=== PATIENT | male | born 1990 | race Caucasian/White ===

== ENCOUNTER 2018-10-09 18:01 | Emergency (ER) | payer SELFPAY ==
[~2018-10-09] VITALS: Ht 188 cm; Wt 147.7 kg
[2018-10-09 18:08] VITALS: TEMP 100
[2018-10-09] MEDS ORDERED: LEVAQUIN 5500 MG/TA1 PO (18:58)
[2018-10-09] MEDS ORDERED: TUSS PO (19:13)
[2018-10-09 19:52] VITALS: BP 128/86; PULSE 101
== END 2018-10-09 19:52 | disposition home or self-care (01) ==
LOC: COL.ER 18:01
DX: J18.1 Lobar pneumonia, unspecified organism (principal); J45.909 Unspecified asthma, uncomplicated
CPT/HCPCS: J8540

== ENCOUNTER 2018-10-17 09:29 | Inpatient (IN) | payer SELFPAY ==
[~2018-10-17] VITALS: Ht 188 cm; Wt 130.0 kg
[~2018-10-17 09:29] MED LIST: LEVAQUIN 5500 MG/TA1 PO; TUSS PO
[2018-10-17 10:40] LABS: HEMATOCRIT 40.8 % (42.0-52.0); HEMOGLOBIN 13.8 g/dl (13.5-18.0); MEAN CELL VOLUME 86 fl (80.0-100.0); MEAN CORPUSCULAR HEMOGLOBIN 29 pg (27.0-31.0); MEAN CORPUSCULAR HGB CONC 34 g/dl (33.0-37.0); MEAN PLATELET VOLUME 8.2 fl (7.4-10.4); PLATELET COUNT 451 K/mm3 (130-400); RED BLOOD COUNT 4.73 M/mm3 (4.20-5.60); REDCELL DISTRIBUTION WIDTH-CV 12.7 % (11.5-14.5)
[2018-10-17 10:55] LABS: BAND 1 % (0-10); EOSINOPHIL 4 % (0-4); LYMPHOCYTE 19 % (20.0-51.0); MYELOCYTE 2 % (0-0); NEUTROPHILS 66 % (42.0-75.2); NUCLEATED RED BLOOD CELL 1 (0-6); PLATELET ESTIMATE INCREASED (NORMAL); POLYCHROMASIA 1+
[2018-10-17 10:57] LABS: BILIRUBIN,TOTAL 0.9 mg/dL (0.0-1.0); CALCIUM 9.7 mg/dL (8.4-10.2); CREATININE, serum 1.07 (0.66-1.25); TOTAL PROTEIN 8.1 gm/dL (6.4-8.2)
[2018-10-17 14:07] LABS: TRICYCLIC ANTIDEPRESS URINE NEGATIVE
--- NOTE | 2018-10-17 15:30 | NUR ---
arrived on unit from ED per WC, assited out of WC and sitting up on side of bed, assisted into gown, IV vancomycin has been infusing to right forearm and site was red and "itchy" was stopped for a short time is now without redness, restarted without redness returning, started comopleting admission assessment and Dr Emmanuel came in to see patient, orders PICC and is wanting to do bronchoscopy, will need to get PICC line placed today so will wait to do Bronch until tomorrow, Sat, 10/19, patient is alert and oriented, no shortness of breath noted except on exertion, press room supervisor notified and Bronch will be scheduled for Sat.
[2018-10-17 15:52] VITALS: BP 124/63; PULSE 81; TEMP 98.8
--- NOTE | 2018-10-17 16:00 | NUR ---
AIV service nurse in to see patient and place PICC
--- NOTE | 2018-10-17 16:58 | NUR ---
WILLIAMV services in and placing PICC
--- NOTE | 2018-10-17 17:25 | NUR ---
PICC line is in and OK to use per AIV services, physical assessment completed, heart rate strong and regular, lungs CTA, bowel sounds present in 4 quads, abdomen is obese and soft, skin warm and dry, color pink, peripheral pulses present in 4 extremities, alert and oriented, Rustam Aleman BEER COOLER in to see patient for bromch for tomorrow, instructed on ordering regular food tonight, verbalizes understanding
[2018-10-17 18:03] LABS: HIV 1/2 Antibodies Non-Reactive; HIV-1p24 Antigen Non-Reactive
--- NOTE | 2018-10-17 18:15 | NUR ---
resting in bed, trying to eat, has dry hacking cough that is non productive, appears SOB when coughing, did not eat much and has a friend who will bring him something else, states has pain in chest during coughing
--- NOTE | 2018-10-17 19:23 | NUR ---
medicated with tessalon pearles po for coughing, bedside shift report given to GAYLA Fountain
[2018-10-17 19:55] VITALS: BP 129/80; PULSE 116; TEMP 102.6
[2018-10-18] VITALS (11 sets, daily range): BP systolic 114–145; BP diastolic 65–97; PULSE 87–102; TEMP 98.2–101.7
--- NOTE | 2018-10-18 00:35 | NUR ---
Completed assessment and medication administration; PT tolerated all cares well; PT continues to have intermittent nausea without emesis; PT A&Ox4, BS active x4, CTAB, IND with AMB; PT continues to have right flank pain; Pending bronchscopy 10/18/18 at 1000; NPO initated at midnight; No further assessed or verbalized complaints at time of exit; PT able to return to comfortable position in bed with personal items and call light within reach; Will continue to monitor. CDA
--- NOTE | 2018-10-18 01:08 | NUR ---
PT resting well in bed; No visible pain or discomfort at time of rounds; No further assessed concerns; Will continues to monitor. CDA
[2018-10-18 06:00] LABS: MEAN CELL VOLUME 88 fl (80.0-100.0); MEAN CORPUSCULAR HGB CONC 33 g/dl (33.0-37.0); MEAN PLATELET VOLUME 8.3 fl (7.4-10.4); PLATELET COUNT 363 K/mm3 (130-400); RED BLOOD COUNT 3.97 M/mm3 (4.20-5.60); REDCELL DISTRIBUTION WIDTH-CV 12.8 % (11.5-14.5)
[2018-10-18 06:07] LABS: HEMATOCRIT 35.1 % (42.0-52.0); HEMOGLOBIN 11.5 g/dl (13.5-18.0); MEAN CORPUSCULAR HEMOGLOBIN 29 pg (27.0-31.0)
[2018-10-18 06:12] LABS: CALCIUM 8.7 mg/dL (8.4-10.2); CREATININE, serum 1.12 (0.66-1.25); POTASSIUM 3.9 mmol/L (3.4-5.0)
[2018-10-18 07:00] LABS: LYMPHOCYTE 5 % (20.0-51.0); NEUTROPHILS 90 % (42.0-75.2); PLATELET ESTIMATE NORMAL (NORMAL)
--- NOTE | 2018-10-18 07:10 | NUR ---
Report given to GAYLA Powell; No significant changes or concerns at time of shift change. CDA
--- NOTE | 2018-10-18 08:00 | NUR ---
Pt is awake and A/Ox4, sitting up in bed on phone. He denies pain or discomfort. IVF are infusing into right upper arm PICC line without difficulty. He remains on room air, resp. are even and unlabored. No cough noted at this time. Pt remains NPO for upcoming bronch. Pt up in room as tolerated. Denies any needs, will monitor.
--- NOTE | 2018-10-18 09:38 | NUR ---
Pt to bronchoscopy at this time with GAYLA Delvalle. Pt to be transfered to medical floor, room 319 post bronchoscopy per Physician prefference. Report given to GAYLA Solano.
--- NOTE | 2018-10-18 10:09 | NUR ---
SW attempted to meet with the patient; the patient was not in the room.
--- NOTE | 2018-10-18 10:55 | NUR ---
Report received from GAYLA Bales. Patient arrived to room 319 via cart and was able to ambulate to bed. Patient is resting in bed with call light in reach.
--- NOTE | 2018-10-18 17:56 | NUR ---
Patient is resting in bed on the phone at this time. Medications have been administered. Patient denies any questions at this time. Call light within reach, will continue to monitor.
--- NOTE | 2018-10-18 18:33 | NUR ---
Patient resting in bed throughout the day. Evening medications administered, with PRN Tylenol. Patient does not want to order a tray this evening. There are no further questions or needs at this time. Call light is within reach.
--- NOTE | 2018-10-18 20:59 | NUR ---
PT IN BED WITH HOB ELEVATED TO 30 DEGREE ANGLE, DENIES PAIN OR DISCOMFORT AT THIS TIME. PT AWARE NEEDS SPUTUM SAMPLE, BUT NOT PRODUCING ANY AT THIS TIME. CALL LIGHT WITHIN REACH.
[2018-10-19 00:01] VITALS: BP 107/49; PULSE 65; TEMP 98.9
--- NOTE | 2018-10-19 01:13 | NUR ---
PT SLEEPING/RESTING WITH NO S/S OF PAIN OR DISCOMFORT NOTED, CALL LIGHT WITHIN REACH.
[2018-10-19 03:32] VITALS: BP 146/79; PULSE 83; TEMP 99.1
[2018-10-19 06:27] LABS: BASO # 0.1 (0.0-0.2); BASO % 0.5 % (0.0-2.0); EOS # 0.2 (0.0-0.7); EOS % 1.5 % (0-4.0); GRAN % 72.7 % (42.2-75.2); HEMOGLOBIN 11.2 g/dl (13.5-18.0); LYMPH # 2.2 (1.2-3.4); LYMPH % 16.1 % (20.0-51.0); MEAN CELL VOLUME 90 fl (80.0-100.0); MEAN CORPUSCULAR HEMOGLOBIN 29 pg (27.0-31.0); MEAN CORPUSCULAR HGB CONC 33 g/dl (33.0-37.0); MEAN PLATELET VOLUME 8.6 fl (7.4-10.4); MONO # 1.2 (0.1-0.6); MONO % 8.6 % (1.7-9.3); PLATELET COUNT 336 K/mm3 (130-400); RED BLOOD COUNT 3.83 M/mm3 (4.20-5.60); REDCELL DISTRIBUTION WIDTH-CV 12.8 % (11.5-14.5)
[2018-10-19 06:39] LABS: CALCIUM 8.7 mg/dL (8.4-10.2); HEMATOCRIT 34.4 % (42.0-52.0); POTASSIUM 4.3 mmol/L (3.4-5.0)
--- NOTE | 2018-10-19 07:24 | NUR ---
UNEVENTFUL NIGHT, PT SLEPT WELL WITH NO S/S OF PAIN OR DISCOMFORT, RESP EVEN AND UNLABORED. CALL LIGHT WITHIN REACH.
[2018-10-19 08:27] VITALS: BP 125/72; PULSE 88; TEMP 98.8
--- NOTE | 2018-10-19 08:42 | NUR ---
Assessment complete. Pt is AXO X3, states he has pain in his neck from his cough. Breathing is even and unlabored on room air. R upper arm PICC has good blood return, flushes easily, remains free of complications, and is CDI. Pt is sitting up in the bed watching TV at this time and he denies further needs. Call light within reach, will continue to monitor.
[2018-10-19 12:12] VITALS: BP 132/70; PULSE 91; TEMP 98.2
--- NOTE | 2018-10-19 13:16 | NUR ---
Patient lives at home in [place], [place] with roommates and he plans to return home upon his discharge. Patient works at [employer] and is typically independent with daily living activities. Patient does not currently have a primary care physician, his [facility] is [facility] and he does not have advance directives of healthcare completed. No further needs at this time.
[2018-10-19 16:02] VITALS: BP 127/82; PULSE 83; TEMP 98.3
--- NOTE | 2018-10-19 19:03 | NUR ---
Report given to GAYLA Laura.
[2018-10-19 19:50] VITALS: BP 122/76; PULSE 84; TEMP 98.1
--- NOTE | 2018-10-19 19:50 | NUR ---
Shift assessment complete. Pt resting in bed, awake, a&o, cooperative c cares. Pt reports continued cough et sore throat; provided c APAP, tessalon farooq et chloraseptic spray per pt req. Pt denies further c/o. PICC noted to R upper arm, patent c good blood return. Pt denies further needs at this time. Call light in reach, will monitor.
[2018-10-20 01:56] VITALS: BP 132/86; PULSE 66; TEMP 98.1
--- NOTE | 2018-10-20 05:57 | NUR ---
Pt resting in bed, condition unchanged. Pt has rested int this shift c very few needs. Denies needs at this time. Call light in reach.
[2018-10-20 06:19] LABS: BASO # 0.1 (0.0-0.2); BASO % 0.8 % (0.0-2.0); EOS # 0.3 (0.0-0.7); EOS % 4.1 % (0-4.0); GRAN # 5.2 (1.4-6.5); GRAN % 62.4 % (42.2-75.2); HEMOGLOBIN 11.2 g/dl (13.5-18.0); LYMPH # 1.9 (1.2-3.4); MEAN CELL VOLUME 90 fl (80.0-100.0); MEAN CORPUSCULAR HEMOGLOBIN 29 pg (27.0-31.0); MEAN CORPUSCULAR HGB CONC 33 g/dl (33.0-37.0); MEAN PLATELET VOLUME 8.5 fl (7.4-10.4); MONO # 0.7 (0.1-0.6); MONO % 8.6 % (1.7-9.3); PLATELET COUNT 341 K/mm3 (130-400); RED BLOOD COUNT 3.82 M/mm3 (4.20-5.60); REDCELL DISTRIBUTION WIDTH-CV 12.7 % (11.5-14.5)
[2018-10-20 06:33] LABS: HEMATOCRIT 34.2 % (42.0-52.0)
[2018-10-20 06:40] LABS: CALCIUM 8.9 mg/dL (8.4-10.2); CREATININE, serum 0.89 (0.66-1.25); POTASSIUM 4.2 mmol/L (3.4-5.0)
--- NOTE | 2018-10-20 07:10 | NUR ---
Received report, went to meet patient and he is observed to be resting on left side with eyes closed. Call light is within reach.
[2018-10-20 07:15] VITALS: BP 136/91; PULSE 86; TEMP 98.7
--- NOTE | 2018-10-20 09:03 | NUR ---
Patient is sitting up on side of bed, assessment complete. Did ask if he was coughing up any sputum for a sample and he stated he wasnt. I did ask that he notify nursing staff if he would happen to have any phlegm. He said he would notify staff with call light which is within reach.
--- NOTE | 2018-10-20 09:56 | NUR ---
Dietary called to notify staff that patient had not ordered breakfast. Did offer assistance to patient and he stated he would order lunch and was not hungry at this time.
[2018-10-20 11:04] VITALS: BP 141/79; PULSE 80; TEMP 98
--- NOTE | 2018-10-20 11:04 | NUR ---
Initial visit; Patient thanked Litigation Docket Manager for looking in on him and letting him know of the availability of Spiritual Care at our hospital.
[2018-10-20 15:08] VITALS: BP 133/69; PULSE 69; TEMP 98.6
--- NOTE | 2018-10-20 18:10 | NUR ---
Patient is sitting up on side of bed eating supper. Denies having any pain. States he is disgusted with his situation and wants to get back to normal. No further needs identified. Call light is within reach.
--- NOTE | 2018-10-20 20:00 | NUR ---
PT IN BED RESTING/SLEEPING, RESP EVEN AND UNLABORED AND NO S/S OF PAIN OR DISCOMFORT NOTED. CALL LIGHT WITHIN REACH.
[2018-10-20 20:19] VITALS: BP 137/75; PULSE 73; TEMP 98.7
[2018-10-20 23:18] VITALS: BP 139/80; PULSE 67; TEMP 98.1
--- NOTE | 2018-10-21 02:00 | NUR ---
PT RESTING/SLEEPING IN BED. PT HAS GOTTEN UP TO USE THE BATHROOM AND HAS IV FLUIDS RUNNING. PT EXPRESSED THAT HE HATES THE ROOM THAT HE IS IN NOW. HE FEELS LIKE HE IS IN SENIOR LIVING. PT ADVISES THAT HE DOES FEEL BETTER AND NOT TO EXPECT TO GET A SPUTUM SAMPLE FROM HIM BECAUSE HE ALWAYS SWALLOWS HIS SPUTUM AND HE FEELS LIKE VOMITING IF HE TRIES TO COUGH IT UP. PT DENIES PAIN OR DISCOMFORT AND NO NEEDS, CALL LIGHT WITHIN REACH.
[2018-10-21 03:58] VITALS: BP 153/74; PULSE 85; TEMP 98.3
[2018-10-21 06:20] LABS: BASO # 0.1 (0.0-0.2); BASO % 0.8 % (0.0-2.0); EOS # 0.3 (0.0-0.7); EOS % 3.5 % (0-4.0); GRAN # 6.1 (1.4-6.5); GRAN % 70.4 % (42.2-75.2); HEMOGLOBIN 11.1 g/dl (13.5-18.0); LYMPH # 1.5 (1.2-3.4); LYMPH % 16.9 % (20.0-51.0); MEAN CELL VOLUME 90 fl (80.0-100.0); MEAN CORPUSCULAR HEMOGLOBIN 29 pg (27.0-31.0); MEAN CORPUSCULAR HGB CONC 32 g/dl (33.0-37.0); MEAN PLATELET VOLUME 8.6 fl (7.4-10.4); MONO # 0.7 (0.1-0.6); MONO % 7.6 % (1.7-9.3); PLATELET COUNT 376 K/mm3 (130-400); RED BLOOD COUNT 3.85 M/mm3 (4.20-5.60); REDCELL DISTRIBUTION WIDTH-CV 12.7 % (11.5-14.5)
[2018-10-21 06:25] LABS: HEMATOCRIT 34.6 % (42.0-52.0)
[2018-10-21 06:33] LABS: CALCIUM 9.1 mg/dL (8.4-10.2); CREATININE, serum 0.87 (0.66-1.25); POTASSIUM 3.9 mmol/L (3.4-5.0)
[2018-10-21 07:49] VITALS: BP 141/80; PULSE 56; TEMP 98.4
--- NOTE | 2018-10-21 09:00 | NUR ---
Patient laying in bed playing game on phone. Assessment complete. Lung sounds clear throughout, heart sounds normal. Bowel sounds present X4. Radial and pedal pulses strong bilaterally. Patient denies SOB, palpitations, dizziness. Patient unable to provide sputum sample, when he coughs up phlegm "I feel like I will vomit, no one is getting a sample". Patien ready to go, doesn't like being in current room. No other needs at this time. Call light within reach.
[2018-10-21 11:01] VITALS: BP 142/91; PULSE 62; TEMP 98.4
[2018-10-21 15:29] VITALS: BP 131/78; PULSE 76; TEMP 98.2
--- NOTE | 2018-10-21 18:27 | NUR ---
PATIENT HAS HAD UNEVENTFUL DAY. AWAITING TB RESULTS. PATIENT DENIES ANY PAIN, NO C/O OF SOB. LUNGS ARE CLEAR THROUGHOUT. FLUIDS DC'd. GASTON PICC SITE IS CDI, NO COMPLICATIONS. RED PORT WILL NOT FLUSH. PURPLE PORT HAS BEEN USED TODAY. NO OTHER NEEDS AT THIS TIME. PATIENT "ANNOYED WITH BEING HERE". CALL LIGHT WITHIN REACH.
[2018-10-21 19:41] VITALS: BP 137/72; PULSE 92; TEMP 98.1
--- NOTE | 2018-10-21 20:00 | NUR ---
Patient sitting up in bed. Assessment completed- lungs clear, abdominal sounds active, pulses +3, cap efill <3 seconds, denies pain, alert, oriented, and independent. Requested 2 cups of ice water- given to pt, no further needs at this time.
[2018-10-22 00:59] VITALS: BP 142/93; PULSE 81; TEMP 98.6
[2018-10-22 04:03] VITALS: BP 130/54; PULSE 65; TEMP 98.4
--- NOTE | 2018-10-22 05:06 | NUR ---
Pt slept on/off last night, VSS, no reports of pain. Still getting IV antibiotics. No needs at this time.
--- NOTE | 2018-10-22 06:54 | NUR ---
report given to GAYLA Alicia.
[2018-10-22 07:10] VITALS: BP 143/88; PULSE 81; TEMP 98.7
--- NOTE | 2018-10-22 08:11 | NUR ---
Pt assessment comoplete. Pt is laying in bed upon entry, he is A/O x3. His breathing is even and unlabored on RA. Pt denies SOB. Cough is present but denies any production of sputum. Pt denies any pain. No N/V. Pt asking about when he can leave the hospital. Pt updated with POC. No needs at this time. Call light within reach.
--- NOTE | 2018-10-22 09:15 | NUR ---
PICC intact right upper arm. unable to flush red port. purple port flushed with good blood return noted. informed primary care nurse to obtain an order for cath-norman.
[2018-10-22 10:45] VITALS: BP 128/85; PULSE 82; TEMP 98.3
[2018-10-22] MEDS ORDERED: CLEOCIN HCL300 MG PO (13:00)
--- NOTE | 2018-10-22 13:50 | NUR ---
YOSEF and YOSEF attended clinical rounds. The patient is to discharge back home today, 10/22. The hospitalist recommended getting set up with primary care and the patient was in agreeance. YOSEF then followed up with the patient and discussed primary care options. The patient was interested in being set up at the [facility] in [place], due to having no health insurance. YOSEF informed the patient's PA. YOSEF then priced the patient's prescription at his preferred pharmacy, [facility] in [place]. The Clindamycin would be $275.00. The patient reports that he would not be able to afford this. YOSEF provided the patient with a med voucher for the Clindamycin to [facility]. YOSEF also faxed the med voucher to [facility]. YOSEF then discussed the importance of following up at the [facility] to also assist with prescription assistance in the future. The patient verbalized understanding. No additional needs at this time.
--- NOTE | 2018-10-22 15:16 | NUR ---
Discharge paperwork and instructions reviewed with patient, all questions answered at this time. PICC line removed by GAYLA Albarran. Pt wheeled out of facility at this time.
[2018-10-24 08:32] LABS: .HISTOPLASMA ANTIGEN SERUM None Detected (())
[2018-10-24 15:49] LABS: HISTOPLASMA ID Negative (Negative); HISTOPLASMA MYCELIAL Negative (Negative); HISTOPLASMA YEAST Negative (Negative)
[2018-10-26 17:02] LABS: COCCIDIOIDES AB IGG Negative (Negative); COCCIDIOIDES AB IGM Negative (Negative); COCCIDIOIDES CF Negative (Negative)
== END 2018-10-22 15:17 | disposition home or self-care (01) | DRG 178 ==
LOC: COL.ER 09:29 → SURG 13:08 → MEDICAL 10-18 10:08
PROVIDERS: Family Medicine; Internal Medicine Critical Care Medicine; Physician Assistant; ADMIT Hospitalist
PROC: 0B9B8ZX Drainage of Left Lower Lobe Bronchus, Via Natural or Artificial Opening Endoscopic, Diagnostic (ICD-10-PCS; 2018-10-18)
PROC: 0B968ZX Drainage of Right Lower Lobe Bronchus, Via Natural or Artificial Opening Endoscopic, Diagnostic (ICD-10-PCS; principal; 2018-10-18 10:00)
DX: J85.1 Abscess of lung with pneumonia (principal); E87.1 Hypo-osmolality and hyponatremia; F17.210 Nicotine dependence, cigarettes, uncomplicated; J45.909 Unspecified asthma, uncomplicated; B34.8 Other viral infections of unspecified site
CPT/HCPCS: 99222-AI; 99232-AI; 99233-AI; 99239; A4216; C1751; C1894; J1650; J2185; J2543; J2704; J3370; J7030; J7040; J7050; J7120; Q9967

== ENCOUNTER 2018-11-02 11:43 | Emergency (ER) | payer SELFPAY ==
[~2018-11-02] VITALS: Ht 188 cm; Wt 154.5 kg
[~2018-11-02 11:43] MED LIST changes: +CLEOCIN HCL300 MG PO
[2018-11-02 11:49] VITALS: TEMP 97.3
[2018-11-02] MEDS ORDERED: ALBUTEROL0.83 MG/ML IH (12:00)
[2018-11-02 12:20] LABS: BASO # 0.1 (0.0-0.2); EOS # 0.5 (0.0-0.7); EOS % 6.1 % (0-4.0); GRAN # 5.3 (1.4-6.5); GRAN % 63.4 % (42.2-75.2); HEMATOCRIT 42.4 % (42.0-52.0); HEMOGLOBIN 14.2 g/dl (13.5-18.0); LYMPH # 1.8 (1.2-3.4); LYMPH % 21.8 % (20.0-51.0); MEAN CELL VOLUME 87 fl (80.0-100.0); MEAN CORPUSCULAR HEMOGLOBIN 29 pg (27.0-31.0); MEAN CORPUSCULAR HGB CONC 34 g/dl (33.0-37.0); MEAN PLATELET VOLUME 8.4 fl (7.4-10.4); MONO # 0.6 (0.1-0.6); MONO % 7.1 % (1.7-9.3); PLATELET COUNT 325 K/mm3 (130-400); REDCELL DISTRIBUTION WIDTH-CV 13.2 % (11.5-14.5)
[2018-11-02 12:30] LABS: ALBUMIN 4.1 gm/dL (3.5-5.0); BILIRUBIN,TOTAL 0.6 mg/dL (0.0-1.0); CALCIUM 9.6 mg/dL (8.4-10.2); CREATININE, serum 0.97 (0.66-1.25); POTASSIUM 3.7 mmol/L (3.4-5.0); TOTAL PROTEIN 7.7 gm/dL (6.4-8.2)
[2018-11-02 16:02] VITALS: BP 135/90; PULSE 76
== END 2018-11-02 16:04 | disposition home or self-care (01) ==
LOC: COL.ER 11:43
PROVIDERS: Nurse Practitioner Primary Care
DX: J18.1 Lobar pneumonia, unspecified organism (principal); I10 Essential (primary) hypertension; J45.909 Unspecified asthma, uncomplicated; F17.210 Nicotine dependence, cigarettes, uncomplicated; Z88.5 Allergy status to narcotic agent
CPT/HCPCS: J7030; Q9967

== ENCOUNTER 2018-11-04 06:25 | Emergency (ER) | payer SELFPAY ==
[~2018-11-04] VITALS: Ht 188 cm; Wt 154.5 kg
[~2018-11-04 06:25] MED LIST changes: +ALBUTEROL0.83 MG/ML IH
[2018-11-04 06:32] VITALS: BP 158/92; PULSE 97; TEMP 98
[2018-11-05] MEDS ORDERED: IPRATROPIUM BROM3 M1 IH (11:34)
== END 2018-11-04 07:50 | disposition left against medical advice (07) ==
LOC: COL.ER 06:25
DX: J18.9 Pneumonia, unspecified organism (principal)

== ENCOUNTER 2018-11-05 09:20 | Emergency (ER) | payer SELFPAY ==
[~2018-11-05] VITALS: Ht 188 cm; Wt 154.5 kg
[2018-11-05 09:25] VITALS: TEMP 97.1
[2018-11-05 10:00] LABS: BASO # 0.1 (0.0-0.2); EOS # 0.5 (0.0-0.7); EOS % 5.5 % (0-4.0); GRAN # 5.8 (1.4-6.5); GRAN % 63.5 % (42.2-75.2); HEMATOCRIT 39.3 % (42.0-52.0); LYMPH # 1.6 (1.2-3.4); LYMPH % 17.9 % (20.0-51.0); MEAN CELL VOLUME 87 fl (80.0-100.0); MEAN CORPUSCULAR HEMOGLOBIN 29 pg (27.0-31.0); MEAN CORPUSCULAR HGB CONC 33 g/dl (33.0-37.0); MEAN PLATELET VOLUME 8.8 fl (7.4-10.4); MONO # 1.1 (0.1-0.6); MONO % 11.9 % (1.7-9.3); PLATELET COUNT 296 K/mm3 (130-400); REDCELL DISTRIBUTION WIDTH-CV 13.4 % (11.5-14.5)
[2018-11-05 10:04] LABS: ALANINE AMINOTRANSFERASE 17 U/L (21-72); ALBUMIN 3.8 gm/dL (3.5-5.0); ALKALINE PHOSPHATASE 82 U/L (50-136); ANION GAP 11 mmol/L (7-16); AST,SGOT 17 U/L (15-37); BILIRUBIN,TOTAL 0.8 mg/dL (0.0-1.0); BLOOD UREA NITROGEN 10 mg/dL (9-20); CALCIUM 9.5 mg/dL (8.4-10.2); CARBON DIOXIDE 22 mmol/L (22-30); CHLORIDE 106 mmol/L (98-107); CREATININE, serum 0.86 (0.66-1.25); GLUCOSE 113 mg/dL (74-106); POTASSIUM 4.1 mmol/L (3.4-5.0); SODIUM 139 mmol/L (137-145); TOTAL PROTEIN 7.4 gm/dL (6.4-8.2)
[2018-11-05 10:15] LABS: TROPONIN-I < 0.012 ng/mL (0.000-0.035)
[2018-11-05 10:36] LABS: COLLECTION METHOD CLEAN CATCH
[2018-11-05 10:46] LABS: MUCOUS Present /lpf; PH 6 (5-8); SQUAMOUS EPITHELIAL 0-2 /hpf; URINE APPEARANCE Clear; URINE BACTERIA None Seen /hpf; URINE BILIRUBIN Negative (NEGATIVE); URINE BLOOD Negative (NEGATIVE); URINE COLOR Yellow; URINE GLUCOSE Negative (NEGATIVE); URINE KETONE Negative (NEGATIVE); URINE LEUKOCYTE ESTERASE Negative (NEGATIVE); URINE NITRATE Negative (NEGATIVE); URINE PROTEIN(semi-quant) Negative (NEGATIVE); URINE RBC 0-2 /hpf; URINE UROBILINOGEN Negative (NEGATIVE); URINE WBC None Seen /hpf
[2018-11-05] MEDS ORDERED: IPRATROPIUM BROM3 M1 IH (11:34)
[2018-11-05 11:50] VITALS: BP 138/84; PULSE 85
== END 2018-11-05 11:50 | disposition home or self-care (01) ==
LOC: COL.ER 09:20
PROVIDERS: Nurse Practitioner Primary Care
DX: J18.1 Lobar pneumonia, unspecified organism (principal); J90 Pleural effusion, not elsewhere classified; Z88.5 Allergy status to narcotic agent
CPT/HCPCS: Q9967

== ENCOUNTER 2018-11-07 21:44 | Inpatient (IN) | payer SELFPAY ==
[~2018-11-07] VITALS: Ht 188 cm; Wt 155.1 kg
[~2018-11-07 21:44] MED LIST changes: +IPRATROPIUM BROM3 M1 IH
[2018-11-07 23:45] LABS: BASO # 0.1 (0.0-0.2); BASO % 0.9 % (0.0-2.0); EOS # 0.6 (0.0-0.7); EOS % 6.1 % (0-4.0); GRAN % 58.5 % (42.2-75.2); HEMOGLOBIN 12.3 g/dl (13.5-18.0); LYMPH # 2.3 (1.2-3.4); LYMPH % 21.9 % (20.0-51.0); MEAN CELL VOLUME 86 fl (80.0-100.0); MEAN CORPUSCULAR HEMOGLOBIN 29 pg (27.0-31.0); MEAN CORPUSCULAR HGB CONC 34 g/dl (33.0-37.0); MEAN PLATELET VOLUME 8.6 fl (7.4-10.4); MONO # 1.3 (0.1-0.6); MONO % 12.3 % (1.7-9.3); PLATELET COUNT 321 K/mm3 (130-400); RED BLOOD COUNT 4.23 M/mm3 (4.20-5.60); REDCELL DISTRIBUTION WIDTH-CV 13.6 % (11.5-14.5)
[2018-11-07 23:46] LABS: HEMATOCRIT 36.5 % (42.0-52.0)
[2018-11-08 00:09] LABS: C-REACTIVE PROTEIN 19.9 mg/dL (0.0-0.9)
[2018-11-08 00:10] LABS: ALBUMIN 3.8 gm/dL (3.5-5.0); BILIRUBIN,TOTAL 0.6 mg/dL (0.0-1.0); CALCIUM 9.1 mg/dL (8.4-10.2); CREATININE, serum 0.89 (0.66-1.25); TOTAL PROTEIN 7.5 gm/dL (6.4-8.2)
[2018-11-08 00:43] VITALS: BP 127/75; PULSE 84; TEMP 97.5
[2018-11-08] MEDS ORDERED: MOTRIN 200200 MG/TAB PO (01:14)
[2018-11-08] MEDS ORDERED: TYLENOL 500MG500 MG PO (01:15)
--- NOTE | 2018-11-08 01:32 | NUR ---
Patient arrived to medical floor room 318 at approximately 0025. Patient denies having pain and discomfort at this time, but does report that he gets chest pain, described as stabbing related to his reccurent pneumonia. LS CTA in upper lobes, diminished in lower lobes. Denies having any sputum production when coughing. Respirations even and unlabored during assessment, but reports SOB and dyspnea with exertion. Peripheral IV to right wrist. Denies having any needs or concerns at this time. Oriented to room. Call light is within reach. Sitting on side of bed on phone at this time. Reports unable to lay down due to SOB. Head of bed elevated for patient for when he wants to lay down.
[2018-11-08 01:40] LABS: COLLECTION METHOD CLEAN CATCH
[2018-11-08 01:46] LABS: PH 5 (5-8); SQUAMOUS EPITHELIAL 0-2 /hpf; URINE APPEARANCE Clear; URINE BACTERIA None Seen /hpf; URINE BILIRUBIN Negative (NEGATIVE); URINE BLOOD Negative (NEGATIVE); URINE COLOR Yellow; URINE GLUCOSE Negative (NEGATIVE); URINE KETONE Negative (NEGATIVE); URINE LEUKOCYTE ESTERASE Negative (NEGATIVE); URINE NITRATE Negative (NEGATIVE); URINE PROTEIN(semi-quant) 1+ (NEGATIVE); URINE RBC 0-2 /hpf; URINE UROBILINOGEN Negative (NEGATIVE)
--- NOTE | 2018-11-08 03:12 | NUR ---
Patient reported pain to right side/chest/back area, rated as a 3. Given PRN APAP as requested. Asked about antibiotics. This nurse spoke with nurse practioner. Stated that she is waiting for ID/Pulmonology to call her back to discuss antibiotics. Updated patient. Voiced no other needs or concerns at that time. NS continues at 125 ml/hr to peripheral IV to right wrist. Sitting in recliner at this time, with legs elevated on bed. Stated it was the only way he could get comfortable enough to sleep, as laying down makes his pain/SOB worse. Call light is within reach. Refused to wear SCDs at this time. Educated provided on purpose of SCDs on prevention blood clots, and voiced understanding, but continued to refuse.
[2018-11-08 03:46] VITALS: BP 145/80; PULSE 105; TEMP 98.5
--- NOTE | 2018-11-08 04:40 | NUR ---
Patient complaining of level 10 pain to right side/chest/back area, described as stabbing. Reports pain is stabbing. PRN APAP around 0300 was not effective. Given PRN Motrin 800 mg as requested.
[2018-11-08 06:18] VITALS: BP 137/82; PULSE 93; TEMP 97.8
--- NOTE | 2018-11-08 06:20 | NUR ---
Tele called and stated patient's pulse increased into the 130s. This nurse went to check on patient. Patient was coughing, and breathing hard upon entering room. Asked if patient was ok, and stated he was trying to go to the bathroom, but coughing spell occured causing him pain. Encouraged patient to take slow deep breaths. This nurse stayed with patient. About 2 minutes later, VS: 97.8 93 18 137/82 92% RA. Assisted patient to bathroom as requested. After assisting back to room, asked if patient would like a nebulizer treatment, and stated he would. Call placed to RT requesting nebulizer. Continues to report level 10 pain at it's worst. Voices no other needs or concerns at this time. Call light is within reach. NS continues to run at 125 ml/hr to peripheral IV to right wrist.
[2018-11-08 06:28] LABS: BASO # 0.1 (0.0-0.2); BASO % 0.9 % (0.0-2.0); EOS # 0.5 (0.0-0.7); EOS % 6.5 % (0-4.0); GRAN # 4.6 (1.4-6.5); GRAN % 57.7 % (42.2-75.2); HEMATOCRIT 36.1 % (42.0-52.0); HEMOGLOBIN 11.5 g/dl (13.5-18.0); LYMPH # 1.8 (1.2-3.4); LYMPH % 21.7 % (20.0-51.0); MEAN CELL VOLUME 89 fl (80.0-100.0); MEAN CORPUSCULAR HEMOGLOBIN 29 pg (27.0-31.0); MEAN CORPUSCULAR HGB CONC 32 g/dl (33.0-37.0); MEAN PLATELET VOLUME 8.7 fl (7.4-10.4); MONO # 1.1 (0.1-0.6); PLATELET COUNT 308 K/mm3 (130-400); RED BLOOD COUNT 4.04 M/mm3 (4.20-5.60); REDCELL DISTRIBUTION WIDTH-CV 13.5 % (11.5-14.5)
[2018-11-08 06:39] LABS: CALCIUM 8.8 mg/dL (8.4-10.2); CREATININE, serum 0.87 (0.66-1.25); POTASSIUM 3.8 mmol/L (3.4-5.0)
[2018-11-08 08:19] VITALS: BP 132/81; PULSE 93; TEMP 98.4
--- NOTE | 2018-11-08 09:16 | NUR ---
Pt is awake and A/Ox4, sitting up on the side of the bed. He remains on RA. Pt has some mild shortness of breath upon exertion. Pt states pain is "better" rating it a 3/10 to right side/back. IVF are infusing into right wrist are free of complications. Pt denies any needs at this time.
--- NOTE | 2018-11-08 12:10 | NUR ---
Pt called out to nurses station stating he needs to talk with his RN. Upon entering room, pt stated that "I want my IV out and I'm leaving." Upon explaining the pt states his frustration stating that "you guys havent given me answers on why I have this abcess and are starting me on medications that have proven to fail before. Instead of racking up a bill that I can't pay I will take care of this myself at home." Dr. Taylor was notified and went to talk with pt. Pt states he understands the risks of leaving AMA. When trying to explain benefits of staying and risks of leaving, pt states he knows the risks/benefits and doesnt want staff to continue to explain. Saline lock was removed, catheter tip intact. Pt left hospital on foot.
--- NOTE | 2018-11-08 12:18 | NUR ---
Before patient was discharged service electrician stopped by. Nothing was needed.
== END 2018-11-08 12:16 | disposition left against medical advice (07) | DRG 178 ==
LOC: COL.ER 21:44 → MEDICAL 23:28 → COL.ER 23:28 → MEDICAL 23:28
PROVIDERS: Family Medicine; Nurse Practitioner; ADMIT Hospitalist
DX: J85.1 Abscess of lung with pneumonia (principal); J90 Pleural effusion, not elsewhere classified; F17.210 Nicotine dependence, cigarettes, uncomplicated
CPT/HCPCS: 99222-AI; J1956; J7030

== ENCOUNTER 2019-02-21 11:42 | Emergency (ER) | payer SELFPAY ==
[~2019-02-21] VITALS: Ht 188 cm; Wt 150.0 kg
[~2019-02-21 11:42] MED LIST changes: +MOTRIN 200200 MG/TAB PO; +TYLENOL 500MG500 MG PO
[2019-02-21 11:49] VITALS: BP 131/84; TEMP 98.5
[2019-02-21] MEDS ORDERED: AMOXICILLIN 50500 MG PO (12:11)
[2019-02-21 12:19] VITALS: PULSE 86
== END 2019-02-21 12:20 | disposition home or self-care (01) ==
LOC: COL.ER 11:42
DX: K02.9 Dental caries, unspecified (principal); F17.210 Nicotine dependence, cigarettes, uncomplicated; Z88.5 Allergy status to narcotic agent

== ENCOUNTER 2020-01-11 13:50 | Inpatient (IN) | payer SELFPAY ==
[~2020-01-11] VITALS: Ht 185.4 cm; Wt 156.6 kg
[~2020-01-11 13:50] MED LIST changes: +AMOXICILLIN 50500 MG PO
[2020-01-11 14:52] LABS: BASO % 0.5 % (0.0-2.0); EOS # 0.5 (0.0-0.7); EOS % 5.1 % (0-4.0); GRAN # 4.9 (1.4-6.5); GRAN % 55.3 % (42.2-75.2); HEMATOCRIT 46.6 % (42.0-52.0); HEMOGLOBIN 15.9 g/dl (13.5-18.0); LYMPH # 2.6 (1.2-3.4); LYMPH % 29.5 % (20.0-51.0); MEAN CELL VOLUME 85 fl (80.0-100.0); MEAN CORPUSCULAR HEMOGLOBIN 29 pg (27.0-31.0); MEAN CORPUSCULAR HGB CONC 34 g/dl (33.0-37.0); MEAN PLATELET VOLUME 8.7 fl (7.4-10.4); MONO # 0.8 (0.1-0.6); PLATELET COUNT 271 K/mm3 (130-400); RED BLOOD COUNT 5.51 M/mm3 (4.20-5.60); REDCELL DISTRIBUTION WIDTH-CV 13.4 % (11.5-14.5)
[2020-01-11 15:06] LABS: ALANINE AMINOTRANSFERASE 36 U/L (4-49); ALBUMIN 4.4 gm/dL (3.5-5.0); ALKALINE PHOSPHATASE 83 U/L (50-136); ANION GAP 7 mmol/L (7-16); AST,SGOT 26 U/L (15-37); BILIRUBIN,TOTAL 0.8 mg/dL (0.0-1.0); BLOOD UREA NITROGEN 14 mg/dL (9-20); C-REACTIVE PROTEIN 1.2 mg/dL (0.0-0.9); CALCIUM 9.4 mg/dL (8.4-10.2); CARBON DIOXIDE 24 mmol/L (22-30); CHLORIDE 104 mmol/L (98-107); CREATININE, serum 0.95 (0.66-1.25); GLUCOSE 88 mg/dL (74-106); POTASSIUM 4.3 mmol/L (3.4-5.0); SODIUM 136 mmol/L (137-145); TOTAL PROTEIN 7.9 gm/dL (6.4-8.2)
[2020-01-11 15:16] LABS: TROPONIN-I < 0.012 ng/mL (0.000-0.035)
[2020-01-11 16:50] LABS: ARTERIAL BLD GAS O2 SATURATION 91.7 % (92-100); ARTERIAL BLD GAS TCO2 CT 21.7; ARTERIAL BLOOD GAS BASE EXCESS -3.1 (-2-2); ARTERIAL BLOOD GAS HCO3 20.7 meq/L (22-26); ARTERIAL BLOOD GAS PCO2 33.8 mmHg (35-45); ARTERIAL BLOOD GAS PO2 60.7 mmHg (80-100)
[2020-01-11 18:22] VITALS: BP 150/88; PULSE 86; TEMP 98.8
[2020-01-11 19:24] VITALS: BP 178/92; PULSE 78; TEMP 97.5
[2020-01-11] MEDS ORDERED: PRINIVIL5 MG (19:42)
--- NOTE | 2020-01-11 20:25 | NUR ---
Pt arrived to floor prior to this RNs shift. Report was received from GAYLA Odom. Pt oriented to room and call light. Admission B completed at this time. Pt alert and oriented x4. Pt denies pain. Pt currently on 5L O2 via oxymask. INT to right ac patent and without complications. Skin assessment documented. Pt denies any other needs at this time. Call light within reach. Will continue to monitor.
[2020-01-12] VITALS (7 sets, daily range): BP systolic 136–157; BP diastolic 51–84; PULSE 72–106; TEMP 97.4–98
--- NOTE | 2020-01-12 02:16 | NUR ---
Pt pushed call light at this time requesting breathing treatment. Upon entering room, pt was found to be leaning over on the edge of his bed trying to catch his breath. Pt states he woke up in a coughing fit and was unable to catch his breath after that. O2 sats 85% on 5L O2 via oxymask. Pt bumped up to 6L O2. RT called at this time.
--- NOTE | 2020-01-12 02:29 | NUR ---
PT CALLED FOR A BREATHING TREATMENT AT 0217, WHEN I ARRIVED PT WAS SITTING ON EDGE OF BED HUNCHED OVER WITH OBVIOUS INCREASE IN WOB. 2 DUONEB TRETMENTS WERE ADMINISTERED WITH LITTLE IMPACT ON O2 SAT. PT SPO2 WAS 88 ON ARRIVAL ON 5 LPM OM. AFTER TRETMENTS PT SPO2 ON 6 LPM IS 90-91.
--- NOTE | 2020-01-12 05:25 | NUR ---
Pt awake on and off throughout the night. Pt was on 5L O2 via oxymask until 0216 when pt woke up in a coughing fit and was unable to catch his breath. RT called at this time. Pt received breathing treatments and was bumped up from 5L O2 to 7L O2 via oxymask due to O2 ranging from 84% to 85% on 5L. Pt currently at 93% on 7L O2 via oxymask. Pt denied pain overnight. INT CDI. Pt denies any other needs at this time. Call light within reach.
--- NOTE | 2020-01-12 07:04 | NUR ---
Report given to GAYLA Odom
--- NOTE | 2020-01-12 07:31 | NUR ---
PATIENT'S BREATH SOUNDS DIMINISHED THROUGHT BEFORE TX AND COARSE AFTER TX, SPO2 ON 6LPM VIA OXYMASK 91%.
--- NOTE | 2020-01-12 09:58 | NUR ---
SW met with the patient to discuss discharge plan. The patient lives in [place] with his sister, Loren (ph#[phone]). He reports independence with ADLs and does not have any DME. The patient utilizes the [facility] in [place], when needed and he receives his medications at the [facility] in [place]. He states that he is not working right now and has occasional difficulties obtaining his meds. The patient is self pay. Financial Counseling has been consulted and a Financial Assistance Application has been provided to the patient. The patient does not have advanced directives and he was not interested in completing them at this time. He is not , has no children, and he states that his parents have . He has two siblings: Loren and Addy Richards. The patient plans to return home with his sister upon discharge. The patient is currently requiring oxygen. SW to continue to monitor.
--- NOTE | 2020-01-12 11:03 | NUR ---
PATIENT NOW ON AIRVO2 AT 30LPM AND 50%FIO2, GIVES SPO2 OR 97%. PATIENT TOLERATING WELL.
--- NOTE | 2020-01-12 14:37 | NUR ---
ON AIRVO2 HIGH FLOW, 40LPM/50% FIO2=95% SPO2. TOLERATES WELL
--- NOTE | 2020-01-12 20:23 | NUR ---
Pt assessment completed and documented. Pt resting in bed at this time playing games on his phone. Pt alert and oriented x4. Denies pain. INT to right ac CDI. Pt denies any other needs at this time. Call light within reach. Will continue to monitor.
[2020-01-13] VITALS (7 sets, daily range): BP systolic 133–167; BP diastolic 77–98; PULSE 65–91; TEMP 97.7–98.3
--- NOTE | 2020-01-13 05:58 | NUR ---
Pt had uneventful shift. Pt states he was able to get some sleep overnight. PT on airvo throughout the night. Denied pain. INT to left wrist CDI. Pt denies any other needs. Call light within reach.
--- NOTE | 2020-01-13 06:44 | NUR ---
Report given to GAYLA Odom
--- NOTE | 2020-01-13 07:20 | NUR ---
ON AIRVO2 HIGH FLOW, TEMP 34, FLOW 35LPM, 50% FIO2. BERKLEY WEL. EXP WHEEZE UPPER LOBES, DI BASES.
--- NOTE | 2020-01-13 11:34 | NUR ---
PATIENT OFF HIGH FLOW OXYGEN NOW. HE IS WORKING ON HIS IS, PULLED 2500. SP02 ON RA IS 90%. WE WENT FOR HIS FIRST WALK, STAYED ABOVE 88% FOR 4 MINUTES.
--- NOTE | 2020-01-13 11:42 | NUR ---
First visit from the insulation power unit tender. No needs right now.
--- NOTE | 2020-01-13 15:51 | NUR ---
Sarah, Financial Counselor, completed SSDI and a Medicaid application with the patient. YOSEF met with the patient and presented him with the Release of Information forms that need signed for the applications. The patient signed forms and YOSEF emailed them back to Financial Counseling.
--- NOTE | 2020-01-13 17:42 | NUR ---
PATIENT NEEDS NO OXYGEN DURING AMBLATION, PATIENT MAINTAINED SPO2 AT 90% DURING EXERCISE.
--- NOTE | 2020-01-14 01:23 | NUR ---
Pt assessment completed, charted, alert, oriented, roomair, independent. Meds provided as per AUG, tolerated well. Pt complained of indigestion, called Dr. Ribeiro, application packaging consultant hospitalist gave him Maalox 30 ml oral as per his verbal order. Settled down on his bed, call light on reach. No further needs at this time.
[2020-01-14 03:37] VITALS: BP 157/92; PULSE 61; TEMP 97.9
--- NOTE | 2020-01-14 06:43 | NUR ---
Report given to GAYLA Gunter
--- NOTE | 2020-01-14 06:46 | NUR ---
Pt had an uneventful night, slept well, refused oxygen use at night. Handover given to GAYLA Gunter.
[2020-01-14 07:44] VITALS: BP 137/88; PULSE 59; TEMP 97.7
[2020-01-14] MEDS ORDERED: IPRATROPIUM BROM3 M1 IH (09:04)
[2020-01-14] MEDS ORDERED: PROAIR HFA0.09 MG/AC IH (09:05)
[2020-01-14] MEDS ORDERED: MEDROL 4MG DOSPA4 MG PO (09:05)
--- NOTE | 2020-01-14 09:52 | NUR ---
Assessment completed, alert/oriented, vital signs stable, reports breathing is much easier today, heart RRR, lungs CTA/ diminished, patient has order to D/C home, I have discussed discharge paperwork with him, instructed to follow up with PCP and Pulm as scheduled, discussed new meds and scripts sent to pharmacy for him, IV removed, leaving alone, he is ambulatoy and I escorted him out the door
== END 2020-01-14 09:56 | disposition home or self-care (01) | DRG 202 ==
LOC: COL.ER 13:50 → MEDICAL 16:07
PROVIDERS: Physician Assistant; ADMIT Student in an Organized Health Care Education/Training Program
DX: J45.901 Unspecified asthma with (acute) exacerbation (principal); J96.01 Acute respiratory failure with hypoxia; E66.9 Obesity, unspecified; D72.1 Eosinophilia; Z79.1 Long term (current) use of non-steroidal anti-inflammatories (NSAID); Z87.891 Personal history of nicotine dependence; Z88.5 Allergy status to narcotic agent
CPT/HCPCS: 99222-AI; 99232-AI; 99239; A9284; J1650; J2920; J2930; J7030; J7512; Q9967

== ENCOUNTER 2020-10-17 16:55 | Emergency (ER) | payer SELFPAY ==
[~2020-10-17] VITALS: Ht 185.4 cm; Wt 161.8 kg
[~2020-10-17 16:55] MED LIST changes: +MEDROL 4MG DOSPA4 MG PO; +PRINIVIL5 MG; +PROAIR HFA0.09 MG/AC IH
[2020-10-17 17:00] VITALS: TEMP 97.9
[2020-10-17] MEDS ORDERED: CLEOCIN HCL300 MG PO (17:19)
[2020-10-17 17:57] VITALS: BP 118/88; PULSE 94
== END 2020-10-17 17:59 | disposition home or self-care (01) ==
LOC: COL.ER 16:55
DX: K04.7 Periapical abscess without sinus (principal); J45.909 Unspecified asthma, uncomplicated; Z88.5 Allergy status to narcotic agent; Z79.51 Long term (current) use of inhaled steroids
CPT/HCPCS: J1885

== ENCOUNTER 2021-01-24 15:21 | Emergency (ER) | payer SELFPAY | END 2021-01-24 16:20 | disposition left against medical advice (07) | LOC: COL.ER 15:21 | DX: R69 Illness, unspecified (principal) ==

== ENCOUNTER 2021-01-24 21:28 | Emergency (ER) | payer SELFPAY ==
[~2021-01-24] VITALS: Ht 185.4 cm; Wt 159.1 kg
[2021-01-24 22:19] VITALS: TEMP 98.4
[2021-01-25 00:56] LABS: BASO # 0.1 (0.0-0.2); EOS # 0.3 (0.0-0.7); EOS % 3.7 % (0-4.0); GRAN % 47.7 % (42.2-75.2); HEMATOCRIT 46.3 % (42.0-52.0); HEMOGLOBIN 15.4 g/dl (13.5-18.0); LYMPH # 3.2 (1.2-3.4); MEAN CELL VOLUME 87 fl (80.0-100.0); MEAN CORPUSCULAR HEMOGLOBIN 29 pg (27.0-31.0); MEAN CORPUSCULAR HGB CONC 33 g/dl (33.0-37.0); MONO # 0.8 (0.1-0.6); MONO % 9.2 % (1.7-9.3); PLATELET COUNT 304 K/mm3 (130-400); RED BLOOD COUNT 5.35 M/mm3 (4.20-5.60); REDCELL DISTRIBUTION WIDTH-CV 13.7 % (11.5-14.5)
[2021-01-25 01:12] LABS: COLLECTION METHOD CLEAN CATCH
[2021-01-25 01:23] LABS: TROPONIN-I < 0.012 ng/mL (0.000-0.035)
[2021-01-25 01:26] LABS: PH 5 (5-8); SQUAMOUS EPITHELIAL 0-2 /hpf; URINE APPEARANCE Clear; URINE BACTERIA None Seen /hpf; URINE BILIRUBIN Negative (NEGATIVE); URINE BLOOD Negative (NEGATIVE); URINE COLOR Yellow; URINE GLUCOSE Negative (NEGATIVE); URINE KETONE Negative (NEGATIVE); URINE LEUKOCYTE ESTERASE Negative (NEGATIVE); URINE NITRATE Negative (NEGATIVE); URINE PROTEIN(semi-quant) Negative (NEGATIVE); URINE RBC 0-2 /hpf; URINE UROBILINOGEN Negative (NEGATIVE)
[2021-01-25 01:31] LABS: ALBUMIN 4.7 gm/dL (3.5-5.0); BILIRUBIN,TOTAL 0.6 mg/dL (0.0-1.0); C-REACTIVE PROTEIN 0.8 mg/dL (0.0-0.9); CALCIUM 9.5 mg/dL (8.4-10.2); CREATININE, serum 0.9 (0.66-1.25); TOTAL PROTEIN 8.2 gm/dL (6.4-8.2)
[2021-01-25 01:34] LABS: POTASSIUM 4.6 mmol/L (3.4-5.0)
[2021-01-25 02:14] VITALS: BP 128/88; PULSE 81
== END 2021-01-25 02:14 | disposition home or self-care (01) ==
LOC: COL.ER 21:28
PROVIDERS: Nurse Practitioner Primary Care
DX: R10.11 Right upper quadrant pain (principal); R06.02 Shortness of breath; J45.909 Unspecified asthma, uncomplicated; I10 Essential (primary) hypertension; Z87.891 Personal history of nicotine dependence; Z79.899 Other long term (current) drug therapy
CPT/HCPCS: J7030

== ENCOUNTER 2021-08-19 11:26 | Emergency (ER) | payer SELFPAY ==
[~2021-08-19] VITALS: Ht 182.9 cm; Wt 159.1 kg
[2021-08-19 11:34] VITALS: TEMP 98
[2021-08-19 12:41] VITALS: BP 143/91; PULSE 83
== END 2021-08-19 12:41 | disposition home or self-care (01) ==
LOC: COL.ER 11:26
DX: R06.02 Shortness of breath (principal); Z87.01 Personal history of pneumonia (recurrent); Z87.891 Personal history of nicotine dependence

== ENCOUNTER 2022-02-19 09:02 | Emergency (ER) | payer SELFPAY ==
[~2022-02-19] VITALS: Ht 185.4 cm; Wt 165.9 kg
[2022-02-19 09:07] VITALS: BP 128/86; PULSE 109; TEMP 98.8
[2022-02-19] MEDS ORDERED: DECADRON 4MG TAB4 MG PO ×3 (11:58→15:19)
[2022-02-19] MEDS ORDERED: ZITHROMAX TRI-500 MG PO ×3 (11:58→15:19)
[2022-02-20] MEDS ORDERED: SINGULAIR 110 MG/TAB PO (12:46)
[2022-02-20] MEDS ORDERED: PRINIVIL40 MG PO (12:46)
[2022-02-20] MEDS ORDERED: DECADRON 4MG TAB4 MG PO (12:47)
== END 2022-02-19 12:16 | disposition home or self-care (01) ==
LOC: COL.ER 09:02
DX: J20.9 Acute bronchitis, unspecified (principal); F17.210 Nicotine dependence, cigarettes, uncomplicated; E66.9 Obesity, unspecified; Z68.42 Body mass index [BMI] 45.0-49.9, adult; Z28.310 Unvaccinated for COVID-19
CPT/HCPCS: J8540

== ENCOUNTER 2022-02-20 09:13 | Inpatient (IN) | payer SELFPAY ==
[~2022-02-20] VITALS: Ht 185.4 cm; Wt 162.3 kg
[~2022-02-20 09:13] MED LIST changes: +DECADRON 4MG TAB4 MG PO; +ZITHROMAX TRI-500 MG PO
[2022-02-20 10:25] LABS: BASO % 0.2 % (0.0-2.0); EOS % 0.1 % (0.0-4.0); GRAN # 16.3 K/mm3 (1.4-6.5); GRAN % 87.5 % (42.2-75.2); HEMATOCRIT 46.9 % (42.0-52.0); HEMOGLOBIN 15.8 g/dl (13.5-18.0); LYMPH # 1.2 K/mm3 (1.2-3.4); LYMPH % 6.6 % (20.0-51.0); MEAN CELL VOLUME 86 fl (80.0-100.0); MEAN CORPUSCULAR HEMOGLOBIN 29 pg (27-31); MEAN CORPUSCULAR HGB CONC 34 g/dl (33.0-37.0); MEAN PLATELET VOLUME 8.8 fl (7.4-10.4); MONO % 5.2 % (1.7-9.3); PLATELET COUNT 357 K/mm3 (130-400); RED BLOOD COUNT 5.48 M/mm3 (4.20-5.60); REDCELL DISTRIBUTION WIDTH-CV 14.9 % (11.5-14.5)
[2022-02-20 10:43] LABS: ALBUMIN 4.2 gm/dL (3.5-5.0); BILIRUBIN,TOTAL 0.4 mg/dL (0.2-1.2); CALCIUM 10.5 mg/dL (8.4-10.2); CREATININE, serum 1.16 mg/dL (0.72-1.25); POTASSIUM 5.2 mmol/L (3.5-4.5); TOTAL PROTEIN 7.7 gm/dL (6.2-8.1)
[2022-02-20 10:51] LABS: TROPONIN-I 0.037 ng/mL (0.00-0.033)
[2022-02-20 11:02] LABS: ARTERIAL BLD GAS O2 SATURATION 90.4 % (92-100); ARTERIAL BLD GAS TCO2 CT 23.7; ARTERIAL BLOOD GAS HCO3 22.6 meq/L (22-26); ARTERIAL BLOOD GAS PCO2 35.2 mmHg (35-45); ARTERIAL BLOOD GAS PO2 58.2 mmHg (80-100); ARTERIAL BLOOD GAS pH 7.43 (7.35-7.45)
[2022-02-20] MEDS ORDERED: PRINIVIL40 MG PO (12:46)
[2022-02-20] MEDS ORDERED: SINGULAIR 110 MG/TAB PO (12:46)
[2022-02-20] MEDS ORDERED: DECADRON 4MG TAB4 MG PO (12:47)
[2022-02-20 13:57] LABS: CALCIUM 10.2 mg/dL (8.4-10.2); CREATININE, serum 1.05 mg/dL (0.72-1.25); POTASSIUM 5.1 mmol/L (3.5-4.5)
[2022-02-20 15:43] VITALS: BP 141/81; PULSE 104; TEMP 97.8
[2022-02-20 16:41] LABS: PROTHROMBIN TIME 11.7 SECONDS (9.7-12.8)
[2022-02-20 16:44] LABS: PARTIAL THROMBOPLASTIN TIME 29.1 SECONDS (26.0-37.0)
--- NOTE | 2022-02-20 18:00 | NUR ---
Patient admitted to room 313 from ED. Report recieved from ED, RN. Medications, allergies, and pharmacy reviewed. Admission paperwork completed. Upon admission, patient was requring 3L of O2 via nasal cannula, patient started to feel increasingly SOA as the end of shift approached. O2 increased to 7L via oxymask. RT made aware. JANICE Cid made aware. Patient on CIWA protocol. Patient denies any further pain, discomfort, or needs at this time. Call light in reach.
[2022-02-20 18:46] VITALS: BP 151/78; PULSE 95
[2022-02-20 20:08] VITALS: BP 130/81; PULSE 97; TEMP 97.7
[2022-02-21] VITALS (9 sets, daily range): BP systolic 99–128; BP diastolic 44–93; PULSE 57–93; TEMP 97.7–98.2
[2022-02-21 01:25] LABS: COLLECTION METHOD CLEAN CATCH
[2022-02-21 01:34] LABS: PH 6.5 (5.0-8.5); SQUAMOUS EPITHELIAL None Seen /hpf (0-10); URINE APPEARANCE Clear (CLEAR/HAZY); URINE BACTERIA Rare /hpf (NONE SEEN); URINE BLOOD Negative (NEGATIVE); URINE COLOR Yellow (YELLOW); URINE GLUCOSE Negative (NEGATIVE); URINE KETONE Negative (NEGATIVE); URINE NITRATE Negative (NEGATIVE); URINE PROTEIN(semi-quant) Negative (NEGATIVE); URINE RBC None Seen /hpf (0-2); URINE UROBILINOGEN 0.2 E.U/dL (0.2-1.0); URINE WBC 0-2 /hpf (0-2)
[2022-02-21 01:44] LABS: TRICYCLIC ANTIDEPRESS URINE NEGATIVE
[2022-02-21 06:30] LABS: BASO % 0.1 % (0.0-2.0); EOS % 0.1 % (0.0-4.0); GRAN # 12.4 K/mm3 (1.4-6.5); GRAN % 85.8 % (42.2-75.2); HEMATOCRIT 47.4 % (42.0-52.0); LYMPH # 1.3 K/mm3 (1.2-3.4); LYMPH % 9.3 % (20.0-51.0); MEAN CORPUSCULAR HEMOGLOBIN 29 pg (27-31); MEAN CORPUSCULAR HGB CONC 32 g/dl (33.0-37.0); MEAN PLATELET VOLUME 8.8 fl (7.4-10.4); MONO # 0.6 K/mm3 (0.1-0.6); MONO % 3.9 % (1.7-9.3); PLATELET COUNT 312 K/mm3 (130-400); RED BLOOD COUNT 5.21 M/mm3 (4.20-5.60)
[2022-02-21 06:42] LABS: MEAN CELL VOLUME 91 fl (80.0-100.0)
[2022-02-21 06:48] LABS: CALCIUM 9.4 mg/dL (8.4-10.2); CREATININE, serum 0.97 mg/dL (0.72-1.25); MAGNESIUM 2.2 mg/dL (1.6-2.6); POTASSIUM 4.8 mmol/L (3.5-4.5)
--- NOTE | 2022-02-21 09:00 | NUR ---
Patient is sitting up on the side of the bed, alert and oriented x 4, just finished his breakfast. Using airvo 30L. Sat 95%. Telemetry in place, NSR. Constant cough. Assessment completed, meds provided. No other needs at thi time. Call light within reach.
--- NOTE | 2022-02-21 15:54 | NUR ---
Retail Interior Designer contacted [facility] Financial Counselor and gave referral as patient is self pay. SW inquired if patient would qualify for Medicaid. SW met with patient to discuss discharge planning. Patient lives in [place] with friends and used to see Dr. Elis Osborn at [facility] in [place] for primary care, however has not been in quite some time. Patient is agreeable to see Dr. Osborn again for hospital follow up. Patient advised he uses the [facility] in [place] or the [facility] pharmacy for any needed medications. Patient has a nebulizer he purchased on [employer] [address] [employer] and no other DME. Patient does not have home oxygen set up, but is currently requiring it. Patient is independent with ADLS and plans to return home at time of discharge. Patient does not have Advance Directives. Patient is not , has no children, and his parents are . Patient has two siblings, Loren (ph#[phone]) and Addy. Patient advised Loren lives in [place], [place] and Addy lives in [place]. SW addressed patient's alcohol and drug use. Patient stated he is not interested in any resources and remarked he has "been through it all" and can quit if he chooses to. Discharge Plan: Home
--- NOTE | 2022-02-21 18:52 | NUR ---
Patient is with 12L O2 NC. His cough has improved. He tolerates eating. His VS are stable. No scoring for CIWA. SOB improving. Report given to night RN.
--- NOTE | 2022-02-21 19:16 | NUR ---
Tx given via mouthpiece, tolerated well.
--- NOTE | 2022-02-21 22:15 | NUR ---
Patient assessed around 1944. Patient has dry cough, unable to produce sputum. Given PRN cough medicine as requested. Denies pain and discomfort. Denies dyspnea at rest, but does with exertion. On oxygen at 11 L/min via NC. In bed with call light within reach. Voices no questions, needs, or concerns at this time.
[2022-02-22 04:26] VITALS: BP 127/75; PULSE 59; TEMP 97.9
--- NOTE | 2022-02-22 05:21 | NUR ---
Patient has denied pain and discomfort this shift. Oxygen decreaed to 11 L/min via HF NC. Continues on Solumedrol per orders. Voices no questions, needs, or concerns at this time. In bed with call light within reach. Not scoring on Detox Protocol.
[2022-02-22 06:50] LABS: BASO % 0.1 % (0.0-2.0); GRAN # 12.7 K/mm3 (1.4-6.5); GRAN % 80.7 % (42.2-75.2); HEMOGLOBIN 14.9 g/dl (13.5-18.0); LYMPH # 1.8 K/mm3 (1.2-3.4); LYMPH % 11.2 % (20.0-51.0); MEAN CELL VOLUME 89 fl (80.0-100.0); MEAN CORPUSCULAR HEMOGLOBIN 29 pg (27-31); MEAN CORPUSCULAR HGB CONC 32 g/dl (33.0-37.0); MEAN PLATELET VOLUME 8.9 fl (7.4-10.4); MONO # 1.1 K/mm3 (0.1-0.6); MONO % 7.2 % (1.7-9.3); PLATELET COUNT 338 K/mm3 (130-400); RED BLOOD COUNT 5.18 M/mm3 (4.20-5.60); REDCELL DISTRIBUTION WIDTH-CV 14.6 % (11.5-14.5)
[2022-02-22 07:00] LABS: CALCIUM 9.1 mg/dL (8.4-10.2); CREATININE, serum 0.84 mg/dL (0.72-1.25); MAGNESIUM 2.2 mg/dL (1.6-2.6); POTASSIUM 4.5 mmol/L (3.5-4.5)
[2022-02-22 07:35] VITALS: BP 141/89; PULSE 65; TEMP 97.8
--- NOTE | 2022-02-22 07:40 | NUR ---
PT RESTING NO NEEDS AT THIS TIME
[2022-02-22 11:12] VITALS: BP 123/71; PULSE 73; TEMP 98
[2022-02-22 15:23] VITALS: BP 109/88; PULSE 68; TEMP 98.2
[2022-02-22 20:18] VITALS: BP 118/69; PULSE 64; TEMP 98.4
--- NOTE | 2022-02-22 21:59 | NUR ---
Patient assessed around 1999. Alert and oriented, and able to make needs known. Reports SOB is doing better, continues with exertion, but not as bad. LS continue to have expiratory wheezing. Currently on oxygen at 6 L/min via NC. Voices no questions, needs, or concerns at this time. Continues on steroids per orders. In bed with call light within reach.
[2022-02-23 00:12] VITALS: BP 133/86; PULSE 61; TEMP 98.3
[2022-02-23 04:36] VITALS: BP 119/65; PULSE 62; TEMP 98.2
--- NOTE | 2022-02-23 05:25 | NUR ---
Patient continues on oxygen at 6 L/min via HF NC. Denies having pain and discomfort. Voices no questions, needs, or concerns at htis time. Continues on steroids per orders. In bed with call light within reach.
[2022-02-23 06:11] LABS: HEMATOCRIT 45.5 % (42.0-52.0); HEMOGLOBIN 14.9 g/dl (13.5-18.0); MEAN CELL VOLUME 88 fl (80.0-100.0); MEAN CORPUSCULAR HEMOGLOBIN 29 pg (27-31); MEAN CORPUSCULAR HGB CONC 33 g/dl (33.0-37.0); MEAN PLATELET VOLUME 8.6 fl (7.4-10.4); PLATELET COUNT 336 K/mm3 (130-400); RED BLOOD COUNT 5.18 M/mm3 (4.20-5.60); REDCELL DISTRIBUTION WIDTH-CV 14.1 % (11.5-14.5)
[2022-02-23 06:32] LABS: CALCIUM 9.1 mg/dL (8.4-10.2); CREATININE, serum 0.95 mg/dL (0.72-1.25); MAGNESIUM 2.2 mg/dL (1.6-2.6); POTASSIUM 4.4 mmol/L (3.5-4.5)
[2022-02-23 06:41] LABS: BAND 1 % (0-10); LYMPHOCYTE 16 % (20.0-51.0); MYELOCYTE 1 % (0-0); NEUTROPHILS 79 % (42.0-75.2); PLATELET ESTIMATE NORMAL (NORMAL)
--- NOTE | 2022-02-23 07:37 | NUR ---
PT RESTING NO NEEDS AT THIS TIME
[2022-02-23 08:15] VITALS: BP 151/77; PULSE 68; TEMP 97.9
[2022-02-23 12:07] VITALS: BP 128/64; PULSE 70; TEMP 97.8
[2022-02-23 16:22] VITALS: BP 156/83; PULSE 89; TEMP 97.8
[2022-02-23 19:51] VITALS: BP 138/88; PULSE 73; TEMP 97.9
--- NOTE | 2022-02-23 20:23 | NUR ---
Pt sitting down in bed, Shift assessment completed. A&O x4. VSS. O2 at 4L. Tele on. Left INT Antecubital CDI. No redness or edema. Pt denies any concerns or needs at this time. Medication administrated per emar. Pt remains in droplet isolation precautions. Call light within reach.
--- NOTE | 2022-02-23 21:26 | NUR ---
Patient's INT site to left AC with some blood. Started new INT to left forearm as requested. Voices no further questions, needs, or concerns at this time. In bed with call light within reach.
[2022-02-24 00:05] VITALS: BP 152/88; PULSE 75; TEMP 98
[2022-02-24 04:19] VITALS: BP 139/91; PULSE 82; TEMP 97.9
--- NOTE | 2022-02-24 06:08 | NUR ---
Agree with [employer] assessment. On oxygen at 3 L/min via NC. Denies pain and discomfort. Recieved IV Solumedrol per orders during the night. Voices no questions, needs, or concerns at this time. In bed with call light within reach.
[2022-02-24 07:04] LABS: HEMATOCRIT 44.2 % (42.0-52.0); MEAN CELL VOLUME 85 fl (80.0-100.0); MEAN CORPUSCULAR HEMOGLOBIN 29 pg (27-31); MEAN CORPUSCULAR HGB CONC 34 g/dl (33.0-37.0); MEAN PLATELET VOLUME 9.2 fl (7.4-10.4); PLATELET COUNT 349 K/mm3 (130-400); RED BLOOD COUNT 5.18 M/mm3 (4.20-5.60); REDCELL DISTRIBUTION WIDTH-CV 13.9 % (11.5-14.5)
[2022-02-24 07:27] LABS: CALCIUM 9.1 mg/dL (8.4-10.2); CREATININE, serum 1.06 mg/dL (0.72-1.25); MAGNESIUM 2.3 mg/dL (1.6-2.6); POTASSIUM 4.3 mmol/L (3.5-4.5)
--- NOTE | 2022-02-24 07:29 | NUR ---
PT AWAKE SITTING ON BED, STATES HE JUST ORDERED BREAKFAST AND THAT HE HADA CALM NIGHT. PT ON O2 VIA NC
[2022-02-24 07:45] VITALS: BP 142/98; PULSE 69; TEMP 97.8
[2022-02-24 08:14] LABS: BAND 1 % (0-10); LYMPHOCYTE 14 % (20.0-51.0); NEUTROPHILS 81 % (42.0-75.2); PLATELET ESTIMATE NORMAL (NORMAL)
--- NOTE | 2022-02-24 11:04 | NUR ---
PT VS STABLE, ORIENT AND ALERT X4, PT NOW ON O2 1.5 LTS VIA N.C SAT AT 92%, PT HAS A DRY COUGH UNABLE TO COLLECT SPUTUM. DUE MEDICAIO GIVEN PRESCRIBED NO ADVERSE REACTION NOTED.
[2022-02-24] MEDS ORDERED: TESSALON P100 MG/CAP PO (11:50)
[2022-02-24] MEDS ORDERED: PREDNISONE10 MG PO (12:01)
[2022-02-24] MEDS ORDERED: 00186-0370-20 IH (12:02)
[2022-02-24] MEDS ORDERED: IPRATROPIUM BROM3 M1 IH (12:03)
[2022-02-24 12:04] VITALS: BP 147/83; PULSE 77; TEMP 97.4
--- NOTE | 2022-02-24 12:33 | NUR ---
pt dc from the unit, discharge summary provided and instruction given, pt verbalize understanding.Tele removed, iv cannular removed tip intact,pt vss, alert and orient x4.pt escorted out of the unit in a wheelchair by the unit tech.
== END 2022-02-24 12:30 | disposition home or self-care (01) | DRG 189 ==
LOC: COL.ER 09:13 → MEDICAL 13:38
PROVIDERS: Nurse Practitioner; Personal Emergency Response Attendant; ADMIT Hospitalist
DX: J96.01 Acute respiratory failure with hypoxia (principal); I21.A1 Myocardial infarction type 2; J44.1 Chronic obstructive pulmonary disease with (acute) exacerbation; Z68.42 Body mass index [BMI] 45.0-49.9, adult; F12.90 Cannabis use, unspecified, uncomplicated; F14.90 Cocaine use, unspecified, uncomplicated; Z66 Do not resuscitate; F17.210 Nicotine dependence, cigarettes, uncomplicated; I10 Essential (primary) hypertension; F10.10 Alcohol abuse, uncomplicated; E87.5 Hyperkalemia; D72.829 Elevated white blood cell count, unspecified; T38.0X5A Adverse effect of glucocorticoids and synthetic analogues, initial encounter; B97.10 Unspecified enterovirus as the cause of diseases classified elsewhere; E66.01 Morbid (severe) obesity due to excess calories; F19.10 Other psychoactive substance abuse, uncomplicated; B97.89 Other viral agents as the cause of diseases classified elsewhere; G47.33 Obstructive sleep apnea (adult) (pediatric); R91.8 Other nonspecific abnormal finding of lung field; J98.4 Other disorders of lung; Y92.89 Other specified places as the place of occurrence of the external cause; Z87.01 Personal history of pneumonia (recurrent); Z88.5 Allergy status to narcotic agent
CPT/HCPCS: A9284; J0456; J1650; J1956; J2920; J7050; Q9967